=== PATIENT | female | born 1995 | race Caucasian/White ===

== ENCOUNTER → 2020-03-08 15:33 | Outpatient (BNVA) | payer SELFPAY | PROVIDERS: Visit Provider Nurse Practitioner Family | DX: R39.9 Unspecified symptoms and signs involving the genitourinary system (principal); R10.9 Unspecified abdominal pain | CPT/HCPCS: 81000 ==

== ENCOUNTER 2021-09-05 16:29 | Emergency (ER) | payer SELFPAY ==
[2021-09-05 17:02] VITALS: BP 126/85; PULSE 96; RESP 13; TEMP 36.4; O2SAT 98; BMI 36.9
[2021-09-05 17:10] VITALS: BP 136/89; PULSE 89; RESP 16; O2SAT 99
--- NOTE | 2021-09-05 17:20 | W.ED.ABDPA2 ---
HPI - Abdominal Pain General: Chief Complaint: Abdominal Pain Stated Complaint: right side & back pain Time Seen by Provider: 09/05/21 17:17 History of Present Illness: Patient is a 25-year-old female comes to the ED with right side and back pain. On August 19 patient had a positive test and the next day she began bleeding. She had heavy bleeding for over a week and then her bleeding resolved back on August 29. She has not had any reoccurring bleeding since. She did go to her doctor's office on September 01 and they did an hCG test on patient and it was at 90. Approximately 3 days ago patient started developing right-sided abdominal pain along with right lower back pain. She rates her pain currently an 8 out of 10 and states that she has not taken anything for pain today. Denies any fever, chills, vaginal bleeding, dysuria, hematuria, bowel changes, nausea or vomiting. Associated Symptoms: Denies chills, constipation, diarrhea, dysuria, fever(s), hematochezia, hematuria, nausea and vomiting Review of Systems Const: Denies: fever(s), chills or fatigue Eyes: Denies: change in vision or eye discomfort ENMT: Denies: throat pain, odynophagia, nasal discharge or nasal congestion Card: Denies: chest pain, palpitations, edema, swelling of feet/ankles, dyspnea on exertion or orthopnea Resp: Denies: dyspnea, productive cough or non-productive cough GI: Reports: abdominal pain (Right-sided abdominal pain); Denies: nausea, vomiting, diarrhea, constipation or hematochezia : Reports: flank pain (Right flank); Denies: dysuria, hematuria or vaginal bleeding Musc: Denies: neck pain, back pain or extremity swelling Skin/Breast: Denies: rash or new lesions Neuro: Denies: headache(s), numbness in extremities or weakness in extremities PFSH ED PFSH: Medical History No pertinent family history Surgical History S/P cholecystectomy Social History Smoking and tobacco status: current every day smoker cigarettes Packs smoked per day: 0.5 Alcohol intake: never History of recent travel: No Current gender identity: Female Female Reproductive History: Spontaneous abortions: No Physical Exam Const: COMMON NORMALS: no acute distress, patient oriented x3, healthy appearing and alert GENERAL APPEARANCE: cooperative and comfortable HENMT: COMMON NORMALS: normocephalic HEAD & SCALP: normocephalic MOUTH: Normal oral and palatal mucosa present THROAT: posterior oropharynx normal and uvula midline Neck/C-Spine: COMMON NORMALS: supple GENERAL: Yes normal visual inspection Resp: COMMON NORMALS: normal respiratory effort, No retractions, No use of accessory muscles and clear to auscultation bilaterally AUSCULTATION: clear to auscultation bilaterally Cardio: COMMON NORMALS: regular rate, regular rhythm, S1 normal heart sound present, S2 normal heart sound present, No gallops present (Cardio), No clicks present (Cardio), No murmurs present (Cardio) and Peripheral pulses 2+ throughout RATE: regular rate RHYTHM: regular rhythm HEART SOUNDS: S1 normal heart sound present and S2 normal heart sound present PERIPHERAL PULSES: Peripheral pulses 2+ throughout GI: COMMON NORMALS: Normal to inspection, nondistended, normoactive bowel sounds present, Soft to palpation and no masses PALPATION: Yes Soft to palpation and Yes Tenderness to palpation present (GI) (Generalized right-sided abdominal tenderness) Details: RLQ and RUQ : BLADDER/KIDNEY EXAM: Yes CVA tenderness on the right Back/Pelvis: GENERAL BACK: Yes CVA tenderness Extremity: COMMON NORMALS: normal to inspection and no pedal edema Neuro: COMMON NORMALS: patient oriented x3 SENSORIUM/ORIENTATION: Yes alert GAIT: Yes Normal gait present Skin: GENERAL SKIN EXAM: dry skin Course Vital Signs: Vital signs: Vital Signs Temperature 97.5 F L 09/05/21 17:02 Pulse Rate 84 09/05/21 20:35 Respiratory Rate 16 09/05/21 20:35 Blood Pressure 130/87 09/05/21 20:35 Pulse Oximetry 95 09/05/21 20:35 MDM - Abdominal Pain Medical Decision Making Patient is a 25-year-old female comes to the ED with right-sided abdominal pain and right flank pain. Patient had a positive test over 2 weeks ago and since had a week of heavy bleeding and saw her PCP approximately 4 days ago checked an hCG quant level and it was in the 90s. Today she was having increased pain she came to the ED for evaluation. Vitals are stable. Patient appears nontoxic in no acute distress or pain. Patient is a meet any sepsis criteria. She has some generalized tenderness of the right side of the abdomen. White blood cell count 10.7 and the rest of CBC and CMP were unremarkable. UA showed UTI. hCG quant was 92.99. Ultrasound of pelvis showed no acute findings. I placed an order with case management for patient be referred to an OB specialist for further followup. Patient was diagnosed with a UTI and likely miscarriage. She is stable for discharge home. patient was sent home with a prescription for Macrobid. I told patient to follow-up with her PCP to have hCG quant tested again in the next 48 hours. Return to ED precautions given. Lab Data I reviewed the patient's lab results. : 09/05/21 17:35 09/05/21 17:35 Labs/Radiology: Radiology Impressions Obstetrics Ultrasound 09/05/21 17:29 IMPRESSION: Unremarkable ultrasound of the pelvis. Laboratory Results WBC 10.7 10^3/uL (4.0-10.0) H 09/05/21 17:35 RBC 4.99 10^6/uL (4.1-5.3) 09/05/21 17:35 Hgb 14.4 g/dL (11.5-15.3) 09/05/21 17:35 Hct 43.1 % (37.0-47.0) 09/05/21 17:35 MCV 86.4 fl (81-99) 09/05/21 17:35 MCH 28.9 pg (28.0-34.0) 09/05/21 17:35 MCHC 33.4 g/dL (30.0-36.0) 09/05/21 17:35 RDW 13.0 % (12.1-15.1) 09/05/21 17:35 Plt Count 237 10^3/cmm (130-400) 09/05/21 17:35 MPV 10.2 fL (7.4-10.4) 09/05/21 17:35 Neut % (Auto) 61.5 % 09/05/21 17:35 Lymph % (Auto) 27.3 % 09/05/21 17:35 [place] % (Auto) 6.8 % 09/05/21 17:35 Eos % (Auto) 3.4 % 09/05/21 17:35 Baso % (Auto) 0.8 % 09/05/21 17:35 Neut # (Auto) 6.56 10^3/uL (1.8-7.7) 09/05/21 17:35 Lymph # (Auto) 2.9 10^3/uL (0.8-4.8) 09/05/21 17:35 [place] # (Auto) 0.7 10^3/uL (0.2-0.9) 09/05/21 17:35 Eos # (Auto) 0.4 10^3/uL (0.0-0.8) 09/05/21 17:35 Baso # (Auto) 0.1 10^3/uL (0.0-0.1) 09/05/21 17:35 Nucleated RBC % (auto) 0 % 09/05/21 17:35 Nucleated RBCs # 0.0 /100WBC 09/05/21 17:35 Sodium 139 mmol/L (136-145) 09/05/21 17:35 Potassium 4.2 mmol/L (3.5-5.1) 09/05/21 17:35 Chloride 103 mmol/L (98-107) 09/05/21 17:35 Carbon Dioxide 22 mmol/L (22-29) 09/05/21 17:35 Anion Gap 18.2 (5-19) 09/05/21 17:35 BUN 7 mg/dL (6-20) 09/05/21 17:35 Creatinine 0.7 mg/dL (0.5-0.9) 09/05/21 17:35 GFR Calculation 102.8 mL/min (90-130) 09/05/21 17:35 Glucose 86 mg/dL (65-115) 09/05/21 17:35 Calculated Osmolality 285 mOsm/kg (285-295) 09/05/21 17:35 Calcium 9.4 mg/dL (8.5-10.5) 09/05/21 17:35 Total Bilirubin 0.2 mg/dL (0.15-1.2) 09/05/21 17:35 AST 16 U/L (0-32) 09/05/21 17:35 ALT 15 U/L (0-33) 09/05/21 17:35 Alkaline Phosphatase 77 IU/L (35-105) 09/05/21 17:35 Total Protein 7.0 g/dL (6.6-8.7) 09/05/21 17:35 Albumin 4.3 g/dL (3.5-5.2) 09/05/21 17:35 Globulin 2.7 g/dL (1.3-4.6) 09/05/21 17:35 Lipase 41 U/L (13-60) 09/05/21 17:35 Ser , Semi-Qnt 92.99 mIU/mL 09/05/21 17:35 Urine Color Yellow (Yellow) 09/05/21 17:35 Urine Appearance Cloudy (CLEAR) 09/05/21 17:35 Urine pH 6 (5-7) 09/05/21 17:35 Ur Specific [place] 1.015 (1.005-1.030) 09/05/21 17:35 Urine Protein Neg (Negative) 09/05/21 17:35 Urine Glucose (UA) Norm (Normal) 09/05/21 17:35 Urine Ketones Negative (Negative) 09/05/21 17:35 Urine Blood 2+ (Negative) H 09/05/21 17:35 Urine Nitrate Positive (Negative) H 09/05/21 17:35 Urine Bilirubin Neg (Negative) 09/05/21 17:35 Urine Urobilinogen Norm mg/dL (Negative) 09/05/21 17:35 Ur Leukocyte Esterase 2+ (Negative) H 09/05/21 17:35 Urine RBC 5-10 /hpf (0-2) H 09/05/21 17:35 Urine WBC 40-55 /hpf (0-5) H 09/05/21 17:35 Ur Squamous Epith Cells 10-15 /hpf (0-5) H 09/05/21 17:35 Amorphous Sediment Not Reportable 09/05/21 17:35 Urine Bacteria 2+ /hpf (NONE) H 09/05/21 17:35 Discharge Plan Discharge Patient Disposition: Home Clinical Impression: Miscarriage UTI (urinary tract infection) Qualifiers: Urinary tract infection type: acute cystitis Hematuria presence: with hematuria Qualified Code(s): N30.01 - Acute cystitis with hematuria Condition: Stable Prescriptions: New nitrofurantoin macrocrystal 100 mg capsule 100 mg PO BID 7 Days Qty: 14 0RF Rx Instructions: must administer with a meal/food No Action pantoprazole [Protonix] 40 mg tablet,delayed release (DR/EC) 40 mg PO DAILY 28 Days Qty: 90 0RF Discharge Orders: Discharge ED (Routine); Ordered 09/05/21 Ordered By: Jeramie Clark Referrals: Isabella Tang MD [Primary Care Provider] - Discharge Diet: Regular Discharge Activity: Resume usual activity Patient Instructions: Miscarriage (ED) Activity Restrictions/Additional Instructions: Follow-up with medical provider in the next 48 hours to have hCG levels rechecked. Your hCG level today here in the ED was 92.99. Case management should contact you in the next several days set up an appointment with OB doctor. Take medications as prescribed. Return to the ER or your medical provider if condition worsens-such as developing severe abdominal pain, nausea/vomiting, fever or vaginal bleeding. Please read and understand discharge instructions. Thank you for choosing [facility] for your healthcare needs today. Please realize this is an emergency room and that we are providing you with a medical screening exam and this may not be complete and all inclusive of all the testing and or work up that you may need to determine your ailment or severity of your illness. It is very important that you follow up as instructed or that you return to the Emergency Department should you have concerns or if your condition changes or worsens in any way. Coding Level of Care Code ED Interpretive Program Coordinator for Franky Swanson Exam Comprehensive
--- NOTE | 2021-09-05 17:29 | USR_ITS ---
PROCEDURE INFORMATION: Exam: US Nonobstetric Pelvis; Complete Exam date and time: 09/05/2021 6:14 PM Age: 25 years old Clinical indication: Other: High hcg post suspected miscarriage; Abdominal pain and other: Back pain; Right lower quadrant; Additional info: w/ bleeding and right side pain TECHNIQUE: Imaging protocol: Transabdominal pelvic nonobstetric ultrasound. Complete exam. Real time ultrasound with image documentation. COMPARISON: No relevant prior studies available. FINDINGS: Uterus: Uterus measures 7.7 x 5.9 x 4.1 cm. Endometrium is 1 mm in thickness. Uterus unremarkable. Right ovary/adnexa: Right ovary measures 3.4 x 3.0 x 4.9 cm. There is normal Doppler flow in the right ovary. There are small follicles in the right ovary. Left ovary/adnexa: Left ovary measures 1.4 x 2.8 x 2.9 cm. There is normal Doppler flow in the left ovary. There are small follicles in left ovary. Intraperitoneal space: No intraperitoneal fluid. Urinary bladder: Normal. US/US OB lmt with transvaginal IMPRESSION: Unremarkable ultrasound of the pelvis.
[2021-09-05 17:48] LABS: Basophils # 0.1 10^3/uL (0.0-0.1); Basophils % 0.8 %; Eosinophils # 0.4 10^3/uL (0.0-0.8); Eosinophils % 3.4 %; Hematocrit 43.1 % (37.0-47.0); Hemoglobin 14.4 g/dL (11.5-15.3); Lymphocytes # 2.9 10^3/uL (0.8-4.8); Lymphocytes % 27.3 %; Mean Corpuscular HGB Conc 33.4 g/dL (30.0-36.0); Mean Corpuscular Hemoglobin 28.9 pg (28.0-34.0); Mean Corpuscular Volume 86.4 fl (81-99); Mean Platelet Volume 10.2 fL (7.4-10.4); Monocytes # 0.7 10^3/uL (0.2-0.9); Monocytes % 6.8 %; Neutrophils # 6.56 10^3/uL (1.8-7.7); Neutrophils % 61.5 %; Nucleated Red Blood Cells % 0 %; Platelet Count 237 10^3/cmm (130-400); Red Blood Count 4.99 10^6/uL (4.1-5.3); White Blood Count 10.7 10^3/uL (4.0-10.0)
[2021-09-05 17:57] LABS: Glucose Urine UA Norm (Normal); Ketones Urine Negative (Negative); Protein Urine Neg (Negative); Specific Gravity, Urine 1.015 (1.005-1.030); Urine Appearance Cloudy (CLEAR); Urine Color Yellow (Yellow); pH Urine 6 (5-7)
[2021-09-05 17:58] LABS: Add Urine Microscopic? YES; Bilirubin Urine Neg (Negative); Blood Urine 2+ (Negative); Leukocyte Esterase Urine 2+ (Negative); Nitrate Urine Positive (Negative); Urobilinogen Urine Norm (Negative)
[2021-09-05 17:59] LABS: WBC Urine 40-55 /hpf (0-5)
[2021-09-05 18:00] LABS: Add Urine Culture? No; Bacteria Urine 2+ /hpf
[2021-09-05 18:10] VITALS: BP 136/81; PULSE 66; RESP 18; O2SAT 96
[2021-09-05 18:16] LABS: HCG Quantitative 92.99 mIU/mL
[2021-09-05 18:28] LABS: Alanine Aminotransferase 15 U/L (0-33); Albumin Level 4.3 g/dL (3.5-5.2); Alkaline Phosphatase 77 IU/L (35-105); Blood Urea Nitrogen 7 mg/dL (6-20); Calcium 9.4 mg/dL (8.5-10.5); Carbon Dioxide 22 mmol/L (22-29); Chloride 103 mmol/L (98-107); Globulin 2.7 g/dL (1.3-4.6); Glomerular Filtration Rate 102.8 mL/min (90-130); Glucose 86 mg/dL (65-115); Lipase 41 U/L (13-60); Osmolality Calculated 285 mOsm/kg (285-295); Sodium 139 mmol/L (136-145); Total Bilirubin 0.2 mg/dL (0.15-1.2)
[2021-09-05 18:30] VITALS: BP 123/75; PULSE 75; RESP 16; O2SAT 97
[2021-09-05 18:44] LABS: Anion Gap 18.2 (5-19); Aspartate Amino Transferase 16 U/L (0-32); Potassium 4.2 mmol/L (3.5-5.1)
[2021-09-05] MEDS: lidocaine 2% viscous 15 ML, aluminum-mag hydrox-simethicon 30 ML, sucralfate oral liq 1 GM PO (20:30)
[2021-09-05 20:35] VITALS: BP 130/87; PULSE 84; RESP 16; O2SAT 95
[2021-09-05] MEDS: HYDROcodone-acetaminophen 5-325 mg Tablet 1 TAB PO (22:26)
[2021-09-05] MEDS: nitrofurantoin SR (BID) 100 mg Capsule PO (22:26)
--- NOTE | 2021-09-06 09:32 | DCPLANNER ---
Addendum entered by Rosana Kaplan 09/15/21 18:42: specification manager had message concerning follow up appointment for patient from [facility]: I spoke with patient and she refused an appointment at this time. She reports her PCP, Dr Isabella Tang is following up on her Er visit, patient has had HCG levels drawn and she reports her PCP plans to order another US as well. I instructed her to have Dr Tang call us if she wants us to follow up with patient//JS Original Note: specification manager had message to schedule a follow up appointment for patient with [facility]. specification manager sent patients information to the front office staff at [facility]. Patients information will be printed and reviewed. Clinic will call patient with appointment information.
== END 2021-09-05 22:30 | disposition home or self-care (01) ==
PROVIDERS: Emergency Provider Physician Assistant; PCP Pediatrics
DX: O03.9 Complete or unspecified spontaneous abortion without complication (principal); N30.01 Acute cystitis with hematuria
CPT/HCPCS: 76815; 76817; 80053; 81001; 83690; 84702; 85025; 99283

== ENCOUNTER 2023-06-15 22:21 | Emergency (ER) | payer MEDICAID, SELFPAY ==
[2023-06-15 22:32] VITALS: BP 110/71; PULSE 104; RESP 18; TEMP 36.6; O2SAT 96
[2023-06-15] MEDS: sodium chloride 0.9% 1,000 ML 999 ML IV (22:57)
[2023-06-15] MEDS: metoclopramide 5 mg/mL SDV 2 mL 10 MG IVP (22:58)
--- NOTE | 2023-06-15 23:00 | W.ED.DIZZY ---
HPI - Dizziness General: Chief Complaint: Dizziness Stated Complaint: dizzy, nausea 19 wks Time Seen by Provider: 06/15/23 22:29 Source: patient Mode of arrival: ambulatory Limitations: no limitations History of Present Illness: HPI Narrative: Patient presents emergency department today for evaluation treatment of new onset dizziness described as room spinning . Patient reports she is currently 19 weeks . She sees SERVER SECURITY ADMINISTRATOR at [facility] in [place]. Patient states she has already had several appointments and states she is already had an ultrasound. Ultrasound revealed no concerns with the fetus but did note a placenta previa. Patient denies any vaginal discharge or bleeding. She has had some dysuria. She complains of generalized abdominal cramping. Patient has been nauseated with her entire with minimal vomiting. She denies diarrhea. She endorses upper respiratory symptoms stating that her children tested positive for influenza last week. Patient was also seen for respiratory symptoms and given amoxicillin but was not tested for influenza-just assume she was positive. Patient has had issues with urinary tract infections reporting that she had recently been treated for UTI. Patient has a history of tachycardia and had previously been on metoprolol. Patient states she took herself off metoprolol when she stopped drinking soda and indicated heart rate was not causing problems but, notes more recently that she has felt palpitations-especially at night. Review of Systems General: Reports: 10 or more systems reviewed and unremarkable except in HPI and below PFSH ED PFSH: Medical History No pertinent family history Surgical History S/P cholecystectomy Social History Smoking and tobacco/nicotine status: current every day tobacco/nicotine user cigarettes Packs smoked per day: 0.5 Alcohol intake: never Substance/Drug Use: never Current gender identity: Female Female Reproductive History: Spontaneous abortions: No Physical Exam Const: COMMON NORMALS: no acute distress, patient oriented x3 and alert HENMT: COMMON NORMALS: normocephalic, atraumatic, hearing grossly normal bilaterally and moist oral mucous membranes HEAD & SCALP: normocephalic and atraumatic Eye: COMMON NORMALS: Equal, round and reactive pupils present, EOMs intact bilaterally and conjunctivae normal CONJUNCTIVA: Yes conjunctivae normal PUPIL: Yes Equal, round and reactive pupils present Neck/C-Spine: COMMON NORMALS: full ROM and no JVD Lymph: LYMPHATIC: no lymphadenopathy noted Resp: COMMON NORMALS: normal respiratory effort, No retractions, No use of accessory muscles and clear to auscultation bilaterally AUSCULTATION: clear to auscultation bilaterally Cardio: COMMON NORMALS: no JVD, regular rate and regular rhythm RATE: regular rate RHYTHM: regular rhythm GI: COMMON NORMALS: Normal to inspection, nondistended, normoactive bowel sounds present and Soft to palpation PALPATION: Yes Soft to palpation : OTHER: heart tones by Doppler between 150 and 166 Back/Pelvis: COMMON NORMALS: no thoracic nor lumbar tenderness and thoraco-lumbar ROM normal Extremity: COMMON NORMALS: normal to inspection, full ROM and capillary refill normal Neuro: COMMON NORMALS: patient oriented x3 SENSORIUM/ORIENTATION: Yes alert Psych: COMMON NORMALS: mental status grossly normal, Normal thought process present, cooperative, normal affect and activity/motor behavior normal THOUGHT PROCESS: Normal thought process present Skin: COMMON NORMALS: no rashes or lesions noted and no wounds GENERAL SKIN EXAM: no rashes or lesions noted Course Vital Signs: Vital signs: Vital Signs Temperature 97.9 F 06/15/23 22:32 Pulse Rate 107 H 06/16/23 00:37 Respiratory Rate 16 06/16/23 00:37 Blood Pressure 116/82 06/16/23 00:37 Pulse Oximetry 97 06/16/23 00:37 Oxygen Delivery Me thod Room Air 06/15/23 22:32 MDM - Dizziness Medical Decision Making Patient presents emergency department today for evaluation treatment of complaints of continued upper respiratory symptoms-cough, dizziness, and occasional palpitations. Patient has a known history of tachycardia and had previously been on metoprolol but she admits to stopping the medication. EKG shows a sinus rhythm. Lab work is unremarkable. No signs of infection, anemia, electrolyte abnormality, dehydration or continued urinary tract infection. Patient was still treated with antinausea medication and fluids but also mentions some worsening reflux symptoms. Patient states she takes omeprazole for reflux already. She was treated with Maalox and Pepcid and states she noticed a significant improvement. She did ask about medications for reflux as well as respiratory symptoms that were safe in . I did provide her with several options on her discharge paperwork after referring to the SERVER SECURITY ADMINISTRATOR recommendations for [id number]-[id number] medications safe in . I encouraged the patient to call her primary care doctor/SERVER SECURITY ADMINISTRATOR on Sunday morning to discuss her elevated heart rate and complaints of dizziness. Patient may need to go back onto a rate control medication such as beta-shwetha. However, she was given strict return precautions for the weekend to be seen and reevaluated for any worsening or changing symptoms. Patient verbalizes understanding and agreement to treatment plan. Differential Diagnosis Unlikely adverse reaction to drug, benign paroxysmal positional vertigo, orthostatic hypotension, cerebrovascular accident or acute vestibular neuronitis Lab Data 06/15/23 23:06 06/15/23 23:06 Laboratory Results WBC 8.36 10^3/uL (3.29-11.43) 06/15/23 23: RBC 4.07 10^6/uL (3.85-5.65) 06/15/23 23:06 Hgb 12.60 g/dL (11.27-16.99) 06/15/23 23:06 Hct 36.9 % (36-47) 06/15/23 23:06 MCV 90.7 fl (85-98) 06/15/23 23: MCH 31.0 pg (27-33) 06/15/23 23: MCHC 34.1 g/dL (30-55) 06/15/23 23:06 RDW 14.5 % (12.1-15.1) 06/15/23 23:06 Plt Count 166 10^3/cmm (157-399) 06/15/23 23:06 MPV 9.1 fL (7.4-10.4) 06/15/23 23:06 Neut % (Auto) 73.7 % 06/15/23 23:06 Lymph % (Auto) 16.1 % 06/15/23 23:06 [place] % (Auto) 8.1 % 06/15/23 23: Eos % (Auto) 0.7 % 06/15/23 23:06 Baso % (Auto) 0.4 % 06/15/23 23:06 Neut # (Auto) 6.16 10^3/uL (1.8-7.7) 06/15/23 23:06 Lymph # (Auto) 1.4 10^3/uL (0.8-4.8) 06/15/23 23:06 [place] # (Auto) 0.7 10^3/uL (0.2-0.9) 06/15/23 23:06 Eos # (Auto) 0.1 10^3/uL (0.0-0.8) 06/15/23 23:06 Baso # (Auto) 0.0 10^3/uL (0.0-0.1) 06/15/23 23:06 Nucleated RBC % (auto) 0 % 06/15/23 23:06 Nucleated RBCs # 0.0 /100WBC 06/15/23 23:06 Sodium 134 mmol/L (136-145) L 06/15/23 23:06 Potassium 3.8 mmol/L (3.5-5.1) 06/15/23 23:06 Chloride 101 mmol/L (98-107) 06/15/23 23:06 Carbon Dioxide 20 mmol/L (22-29) L 06/15/23 23:06 Anion Gap 16.8 (5-19) 06/15/23 23:06 BUN 2 mg/dL (6-20) L 06/15/23 23:06 Creatinine 0.4 mg/dL (0.5-0.9) L 06/15/23 23:06 GFR Calculation 192.9 mL/min (90-130) H 06/15/23 23:06 Glucose 80 mg/dL (65-115) 06/15/23 23:06 Calculated Osmolality 273 mOsm/kg (285-295) L 06/15/23 23:06 Calcium 8.4 mg/dL (8.5-10.5) L 06/15/23 23:06 Total Bilirubin 0.2 mg/dL (0.15-1.2) 06/15/23 23:06 AST 28 U/L (0-32) 06/15/23 23:06 ALT 27 U/L (0-33) 06/15/23 23:06 Alkaline Phosphatase 63 U/L (35-105) 06/15/23 23:06 Total Protein 6.0 g/dL (6.6-8.7) L 06/15/23 23:06 Albumin 3.6 g/dL (3.5-5.2) 06/15/23 23:06 Globulin 2.4 g/dL (1.3-4.6) 06/15/23 23:06 TSH 0.37 uIU/mL (0.27-4.20) 06/15/23 23:06 Urine Color Yellow (Yellow) 06/15/23 23:19 Urine Appearance Clear (CLEAR) 06/15/23 23:19 Urine pH 7 (5-7) 06/15/23 23:19 Ur Specific [place] 1.015 (1.005-1.030) 06/15/23 23:19 Urine Protein Neg (Negative) 06/15/23 23:19 Urine Glucose (UA) Norm (Normal) 06/15/23 23:19 Urine Ketones 1+ (Negative) H 06/15/23 23:19 Urine Blood Neg (Negative) 06/15/23 23:19 Urine Nitrate Negative (Negative) 06/15/23 23:19 Urine Bilirubin Neg (Negative) 06/15/23 23:19 Urine Urobilinogen Norm mg/dL (Negative) 06/15/23 23:19 Ur Leukocyte Esterase Negative (Negative) 06/15/23 23:19 Urine Opiates Screen Negative ng/mL (Negative) 06/15/23 23:19 Ur Barbiturates Screen Negative ng/mL (Negative) 06/15/23 23:19 Ur Phencyclidine Scrn Negative ng/mL (Negative) 06/15/23 23:19 Ur Amphetamines Screen Negative ng/mL (Negative) 06/15/23 23:19 U Benzodiazepines Scrn Negative ng/mL (Negative) 06/15/23 23:19 Urine Cocaine Screen Negative ng/mL (Negative) 06/15/23 23:19 U Marijuana (THC) Screen Negative ng/mL (Negative) 06/15/23 23:19 No radiology studies performed this visit Discharge Plan Discharge Patient Disposition: Home Clinical Impression: Dizziness, Tachycardia, Condition: Stable Prescriptions: No Action pantoprazole [Protonix] 40 mg tablet,delayed release (DR/EC) 40 mg PO DAILY 28 Days Qty: 90 0RF Discharge Orders: Discharge ED (Routine); Ordered 06/16/23 Ordered By: Zaria Guadarrama Discharge Diet: Advance as tolerated Discharge Activity: Increase activity as tolerated Patient Instructions: Dizziness (ED), Tachycardia (ED) Activity Restrictions/Additional Instructions: Lab work today shows no acute concerns. You have no signs of infection, no signs of anemia, no significant electrolyte abnormality or dehydration at this time. Urinalysis shows that you have no signs of UTI and EKG shows no acute concerns. You do have occasional tachycardia with heart rates greater than 100 bpm. As you have used metoprolol in the past I do recommend you reach out to your SERVER SECURITY ADMINISTRATOR to make them aware of the symptoms you are experiencing as they may want you to go back on this medication. As we discussed, if you are having issues with reflux we recommend using [id number]-[id number] Pepcid, Zantac, Mylanta, or Maalox for your symptoms. You may also use certain zmxg-rna-hmveoxn medications for your coughing symptoms. As you are past your first trimester, you can use Robitussin DM as recommended on the box. You can also use cough drops and lozenges in addition to Zyrtec or Claritin to decrease nasal congestion. For your nausea, you can use Dramamine, Unisom, or B6 supplements. Continue to monitor your symptoms at home. If you begin experiencing chest pains or experience episodes of passing out you need to be seen and reevaluated back in the ER. Coding Level of Care Code ED Batch Dumper for Franky Swanson
[2023-06-15 23:01] VITALS: BP 139/76; PULSE 99; RESP 16; O2SAT 97
[2023-06-15 23:09] LABS: Basophils % 0.4 %; Eosinophils # 0.1 10^3/uL (0.0-0.8); Eosinophils % 0.7 %; Hematocrit 36.9 % (36-47); Lymphocytes # 1.4 10^3/uL (0.8-4.8); Lymphocytes % 16.1 %; Mean Corpuscular HGB Conc 34.1 g/dL (30-55); Mean Corpuscular Volume 90.7 fl (85-98); Mean Platelet Volume 9.1 fL (7.4-10.4); Monocytes # 0.7 10^3/uL (0.2-0.9); Monocytes % 8.1 %; Neutrophils # 6.16 10^3/uL (1.8-7.7); Neutrophils % 73.7 %; Nucleated Red Blood Cells % 0 %; Platelet Count 166 10^3/cmm (157-399); Red Blood Count 4.07 10^6/uL (3.85-5.65); Red Cell Distribution Width 14.5 % (12.1-15.1); White Blood Count 8.36 10^3/uL (3.29-11.43)
--- NOTE | 2023-06-15 23:13 | ECG_ITS ---
[facility] Test Date: 2023-06-15 Pat Name: Jena Blackman Department: Room: Gender: Female Parer: : 1995 Requested By: Zaria Phillips Order Number: [id number] Davenport MD: Daniel Mosley M.D. Measurements Intervals [place] Rate: 94 P: 30 PA: 161 QRS: 29 QRSD: 81 T: 29 QT: 340 QTc: 427 Interpretive Statements SINUS RHYTHM NONSPECIFIC T-WAVE ABNORMALITY No previous ECG available for comparison Electronically Signed On 06-15-2023 23:42:24 TAX EXPERT by Daniel Mosley M.D. [id number]
[2023-06-15 23:29] LABS: Add Urine Microscopic? NO; Charge for UA Resulting for Rev
[2023-06-15] MEDS: alum-mag-hydroxide-sime 30 mL UDC PO (23:36)
[2023-06-15] MEDS: famotidine 20 mg/2 mL INJ IVP (23:36)
[2023-06-15 23:38] LABS: Alanine Aminotransferase 27 U/L (0-33); Albumin Level 3.6 g/dL (3.5-5.2); Alkaline Phosphatase 63 U/L (35-105); Aspartate Amino Transferase 28 U/L (0-32); Blood Urea Nitrogen 2 mg/dL (6-20); Calcium 8.4 mg/dL (8.5-10.5); Carbon Dioxide 20 mmol/L (22-29); Chloride 101 mmol/L (98-107); Globulin 2.4 g/dL (1.3-4.6); Glomerular Filtration Rate 192.9 mL/min (90-130); Glucose 80 mg/dL (65-115); Osmolality Calculated 273 mOsm/kg (285-295); Sodium 134 mmol/L (136-145); Thyroid Stimulating Hormone 0.37 uIU/mL (0.27-4.20); Total Bilirubin 0.2 mg/dL (0.15-1.2)
[2023-06-15 23:40] LABS: Amphetamines Screen Urine Negative (Negative); Barbiturates Screen Urine Negative (Negative); Benzodiazepines Screen Urine Negative (Negative); Cocaine Screen Urine Negative (Negative); Opiate Screen Urine Negative (Negative); PCP Screen Urine Negative (Negative); THC Screen Urine Negative (Negative)
[2023-06-15 23:41] LABS: Bilirubin Urine Neg (Negative); Blood Urine Neg (Negative); Glucose Urine UA Norm (Normal); Ketones Urine 1+ (Negative); Leukocyte Esterase Urine Negative (Negative); Nitrate Urine Negative (Negative); Protein Urine Neg (Negative); Specific Gravity, Urine 1.015 (1.005-1.030); Urine Appearance Clear (CLEAR); Urine Color Yellow (Yellow); Urobilinogen Urine Norm (Negative); pH Urine 7 (5-7)
[2023-06-15 23:41] LABS: Anion Gap 16.8 (5-19); Potassium 3.8 mmol/L (3.5-5.1)
[2023-06-16 00:37] VITALS: BP 116/82; PULSE 107; RESP 16; O2SAT 97
[2023-06-16] MEDS: guaiFENesin-dextromethorphan UDC 10 mL PO (00:37)
== END 2023-06-16 00:42 | disposition home or self-care (01) ==
PROVIDERS: Emergency Provider Physician Assistant
DX: O26.892 Other specified pregnancy related conditions, second trimester (principal); R42 Dizziness and giddiness; O99.332 Smoking (tobacco) complicating pregnancy, second trimester; F17.210 Nicotine dependence, cigarettes, uncomplicated; O99.891 Other specified diseases and conditions complicating pregnancy; R00.0 Tachycardia, unspecified; Z3A.19 19 weeks gestation of pregnancy
CPT/HCPCS: 80053; 80306; 81003; 84443; 85025; 93005; 96374; 96375; 99284; J2765; J3490; J7030